=== PATIENT | male | born 1960 | race Caucasian/White ===

== ENCOUNTER 2022-03-12 04:42 | Emergency (ER) | payer OTHER ==
[~2022-03-12] VITALS: Ht 177.8 cm; Wt 97.5 kg
--- NOTE | 2022-03-12 05:10 | NUR ---
Patient walked to ER with steady gait, NAD noted
--- NOTE | 2022-03-12 05:18 | NUR ---
Dr Martinez at bedside MSE in progress
[2022-03-12] MEDS ORDERED: OXYC-128 PO (05:45)
--- NOTE | 2022-03-12 05:48 | NUR ---
Patient discharged to home in stable condition. Pt. is AOX4, Written and verbal after care instructions given. Patient verbalizes understanding of instructions. Stressed follow up or return to ER for worsening s/s.
[2022-03-12 05:49] VITALS: BP 120/80
== END 2022-03-12 05:50 | disposition home or self-care (01) ==
LOC: ER 04:50
DX: M79.18 Myalgia, other site (principal)
CPT/HCPCS: A4663

== ENCOUNTER 2022-10-31 08:51 | Emergency (ER) | payer OTHER ==
[~2022-10-31] VITALS: Ht 177.8 cm; Wt 95.3 kg
[~2022-10-31 08:51] MED LIST: OXYC-128 PO
[2022-10-31] MEDS ORDERED: ALBUTEROL SULFATE 2.5 MG/3 ML NEBU NEB ONE (09:15)
[2022-10-31] MEDS ORDERED: IPRATROPIUM BROMIDE 0.5 MG/2.5 ML NEBU NEB ONE (09:15)
[2022-10-31] MEDS ORDERED: ALBUTEROL SULFATE 2.5 MG/3 ML NEBU ONE (09:18)
[2022-10-31] MEDS ORDERED: IPRATROPIUM BROMIDE 0.5 MG/2.5 ML NEBU ONE (09:19)
--- NOTE | 2022-10-31 09:30 | NUR ---
Pt seen by MD for bedside eval. Safety measures in place. Will continue to monitor.
[2022-10-31] MEDS ORDERED: BENZ-13 PO (10:10)
[2022-10-31] MEDS ORDERED: ALBU18HF2 INH (10:10)
--- NOTE | 2022-10-31 10:23 | NUR ---
Patient discharged to home in stable condition. Written and verbal after care instructions given. Patient verbalizes understanding of instructions. Stressed follow up or return to ER for worsening s/s.
[2022-10-31 10:24] VITALS: BP 118/70
== END 2022-10-31 10:45 | disposition home or self-care (01) ==
LOC: ER 08:51
DX: J40 Bronchitis, not specified as acute or chronic (principal); F17.210 Nicotine dependence, cigarettes, uncomplicated; Z79.899 Other long term (current) drug therapy
CPT/HCPCS: 71045; 93005; 94760; A4663; J3590

== ENCOUNTER 2022-11-01 15:27 | Emergency (ER) | payer OTHER ==
[~2022-11-01] VITALS: Ht 177.8 cm; Wt 95.3 kg
[~2022-11-01 15:27] MED LIST changes: +ALBU18HF2 INH; +BENZ-13 PO
[2022-11-01] MEDS ORDERED: ACETAMINOPHEN ES 500 MG TABLET PO ONE (16:00)
[2022-11-01] MEDS ORDERED: IV NORMAL SALINE 1000 ML BAG IV ONE (16:00)
[2022-11-01] MEDS ORDERED: IBUPROFEN 200 MG TABLET PO ONE (16:00)
[2022-11-01 16:02] LABS: HEMATOCRIT 39.8 % (36.7-47.1); MEAN CORPUSCULAR HEMOGLOBIN 28.4 uug (23.8-33.4); MEAN CORPUSCULAR VOLUME 86.1 fL (73.0-96.2); PLATELET COUNT (AUTO) 126 K/uL (152-348)
[2022-11-01] MEDS ORDERED: IBUPROFEN 400 MG TABLET ONE (16:02)
[2022-11-01] MEDS ORDERED: ACETAMINOPHEN ES 500 MG TABLET ONE (16:03)
[2022-11-01 16:12] LABS: CARBON DIOXIDE 31 mmol/L (21-32); CHLORIDE 104 mmol/L (98-107); CREATININE 0.9 mg/dL (0.6-1.3); GLUCOSE 113 mg/dL (74-106); UREA NITROGEN, BLOOD 13 mg/dL (7-18)
--- NOTE | 2022-11-01 17:40 | NUR ---
PT WAS EVALUATED BY DR PERALES. PT WAS D/C'd TO HOME. D/C INSTRUCTIONS GIVEN TO THE PT BY DR PERALES.
[2022-11-01 17:42] VITALS: BP 145/74
== END 2022-11-01 17:43 | disposition home or self-care (01) ==
LOC: ER 15:27
DX: J40 Bronchitis, not specified as acute or chronic (principal); B34.9 Viral infection, unspecified; F17.210 Nicotine dependence, cigarettes, uncomplicated; R07.89 Other chest pain; Z79.899 Other long term (current) drug therapy; Z20.822 Contact with and (suspected) exposure to COVID-19
CPT/HCPCS: 99285; 96360; 71046; 87426; 87804 ×2; 80048; 83880; 85025; 84484; 36415; 93005; J7040; A4663; A9150